=== PATIENT | female | born 1945 ===

== ENCOUNTER 2025-06-02 05:08 | Day surgery (SDC) | payer OTHER ==
[2025-05-27 11:52] VITALS: BP 140/79
[~2025-06-02] VITALS: Ht 167.6 cm; Wt 67.1 kg
[~2025-06-02 05:08] MED LIST: LIPITOR20 MG; NORVASC10 MG PO; SYNTHROID112 MCG PO; VITAMIN D310 MCG/1 M
[2025-06-02] MEDS ORDERED: CEFAZOLIN SODIUM 1,000 MG VIAL IV SCH (08:30)
[2025-06-02] MEDS ORDERED: CHLORHEXIDINE GLUCONATE 120 ML BOTTLE TOP ONE (08:30)
[2025-06-02] MEDS ORDERED: LIDOCAINE HCL 1%/EPINEPHRINE 20ML VIAL IJ ONE (08:30)
[2025-06-02] MEDS ORDERED: GENTAMICIN SULFATE 40 MG/ML VIAL IR ONE (08:30)
[2025-06-02] MEDS ORDERED: CEFAZOLIN SODIUM 1,000 MG VIAL IJ ONE (08:30)
[2025-06-02] MEDS ORDERED: MACROBID 100 M100 MG PO (10:41)
[2025-06-02] MEDS ORDERED: ACETAMINOPHEN-1 EAC2 PO (10:42)
== END 2025-06-02 12:40 | disposition home or self-care (01) ==
LOC: CIR.AMB 05:08
PROVIDERS: ATTEND Obstetrics & Gynecology Gynecology
DX: N81.3 Complete uterovaginal prolapse (principal); Z88.6 Allergy status to analgesic agent